=== PATIENT | male | born 1970 | race American Indian/Alaskan Native ===

== ENCOUNTER 2018-12-16 08:30 | Day surgery (SDC) | payer MEDICARE ==
[~2018-12-16 08:30] MED LIST: SODIUM CHLORIDE 0.9% 1000 ML 1,000 ML IV SCH
--- NOTE | 2018-12-16 09:22 | Anesthesia Consultation ---
Anesthesia Consult and Med Hx Date of service: 12/16/18 - Airway Anesthetic Teeth Evaluation: Good (some missing teeth, some fillings) ROM Head & Neck: Adequate Mental/Hyoid Distance: Adequate Mallampati Class: Class III Intubation Access Assessment: Possibly Difficult - Pre-Operative Health Status ASA Pre-Surgery Classification: ASA3 Proposed Anesthetic Plan: MAC - Pulmonary Hx Sleep Apnea: Yes (undiagnosed) - Cardiovascular System Hx Hypertension: Yes Hx Coronary Artery Disease: Yes (no CP, cardiac stent x1 (2011)) Hx Percutaneous Transluminal Coronary Angioplasty (PTCA): Yes (2011) - Endocrine Hx Non-Insulin Dependent Diabetes: Yes - Other Systems Hx Obesity: Yes (BMI 30.7)
--- NOTE | 2018-12-16 09:24 | Anesthesia Day of Surgery ---
Anesthesia Day of Surgery - Day of Surgery Patient Examined: Yes Patient H&P Reviewed: Yes Patient is NPO: Yes Beta Blockers: Yes Cardiac Clearance: Yes (EF 50%)
[2018-12-16] MEDS ORDERED: PROPOFOL 200 MG/20 ML VIAL IV ONE ×3 (09:44→10:03)
--- NOTE | 2018-12-16 10:22 | Procedure Note ---
Date of procedure: 12/16/18 Pre-op diagnosis: Colon Polyp Screeing Post-op diagnosis: other (No Colon Polyps noted/Few Scattered Left Colon Diverticuli) Procedure: Colonoscopy Anesthesia: MAC Surgeon: HEATHER GARZA Estimated blood loss: none Pathology: none Condition: stable Disposition: same day (Encourage fiber intake. Resume home medication and follow up in 1 to 2 weeks ([phone]).)
[2018-12-16 10:45] VITALS: BP 116/78
--- NOTE | 2018-12-16 10:53 | Operative Report ---
The patient is a 48-year-old -[place] gentleman with an underlying history of coronary artery disease status post stent placement who had a colonoscopy done as part of colon polyp screening. DESCRIPTION OF PROCEDURE: Procedure was done after getting informed consent with MAC anesthesia. Initial rectal exam was unremarkable. Instrument was passed through the rectum onto the cecum which was identified with ileocecal valve and appendiceal orifice. The cecum was also viewed on the retroverted view which did not show any additional pathology. Cecum, ascending colon, transverse colon showed normal mucosa. There was a few scattered diverticula noted in the left colon and the rectum appeared normal on the retroverted view. There was no biopsies done. No bleeding associated with the procedure. No complications associated with the procedure. ASSESSMENT: Colon polyp screening, no colon polyps noted. Few scattered left colon diverticula. PLAN: To encourage fiber supplements, have the patient resume home medication. Have the patient follow up in the office in 1-2 weeks' time. The procedure was done in the GI lab unit with the assistance of the GI lab team which included Rosa PUGH; Huan alvares and with the assistance of anesthesia. JOB# [id number] CARLINE/VIVIAN
--- NOTE | 2018-12-16 15:35 | Post Anesthesia Evaluation ---
- Post Anesthesia Evaluation Patient Participated: Yes Airway Patent: Yes Stable Respiratory Function: Yes Nausea/Vomiting: No Temp > 96.8F: Yes Pain Manageable: Yes Adequeate Hydration: Yes Anesthesia Complications: No Block Receding Appropriately: Not Applicable Patient on Ventilator: No
== END 2018-12-16 10:52 | disposition home or self-care (01) ==
LOC: GIO 08:30
DX: Z12.11 Encounter for screening for malignant neoplasm of colon (principal); K57.30 Diverticulosis of large intestine without perforation or abscess without bleeding; I25.10 Atherosclerotic heart disease of native coronary artery without angina pectoris; I10 Essential (primary) hypertension; E11.9 Type 2 diabetes mellitus without complications; E78.00 Pure hypercholesterolemia, unspecified; G47.30 Sleep apnea, unspecified; E66.9 Obesity, unspecified; Z72.89 Other problems related to lifestyle; Z79.899 Other long term (current) drug therapy; Z95.5 Presence of coronary angioplasty implant and graft; Z79.82 Long term (current) use of aspirin; Z68.30 Body mass index [BMI] 30.0-30.9, adult; Z98.890 Other specified postprocedural states
CPT/HCPCS: 82962; G0121; J2704; J7030

== ENCOUNTER 2020-11-15 10:12 | Day surgery (SDC) | payer MEDICARE ==
--- NOTE | 2020-11-15 11:09 | Anesthesia Consultation ---
Anesthesia Consult and Med Hx Date of service: 11/15/20 - Airway Anesthetic Teeth Evaluation: Good ROM Head & Neck: Adequate Mental/Hyoid Distance: Inadequate Mallampati Class: Class II Intubation Access Assessment: Probably Good - Pulmonary Exam CTA: Yes - Pre-Operative Health Status ASA Pre-Surgery Classification: ASA3 Proposed Anesthetic Plan: MAC - Pulmonary Hx Smoking: No Hx Respiratory Symptoms: No Hx Sleep Apnea: Yes (undiagnosed) - Cardiovascular System Hx Hypertension: Yes Hx Coronary Artery Disease: Yes (no CP, cardiac stent x1 (2011)) Hx Percutaneous Transluminal Coronary Angioplasty (PTCA): Yes (2011) - Central Nervous System Hx Neuromuscular Disorder: No Hx Seizures: No Hx Psychiatric Problems: No - Gastrointestinal Hx Gastroesophageal Reflux Disease: Yes - Endocrine Hx Renal Disease: No Hx Liver Disease: No Hx Non-Insulin Dependent Diabetes: Yes Hx Thyroid Disease: No - Other Systems Hx Alcohol Use: No Hx Obesity: Yes (BMI 30.7)
--- NOTE | 2020-11-15 11:11 | Anesthesia Day of Surgery ---
Anesthesia Day of Surgery - Day of Surgery Patient Examined: Yes Patient H&P Reviewed: Yes Patient is NPO: No (Gatorade <2hrs to procedure) Beta Blockers: No Cardiac Clearance: No Pulmonary Clearance: No Cruz's Test: N/A
[2020-11-15] MEDS ORDERED: LIDOCAINE MPF (2%) 20 MG/1 ML VIAL 5 ML ONE (11:14)
[2020-11-15] MEDS ORDERED: propofoL 200 MG/20 ML VIAL IV ONE ×3 (11:14→11:35)
[2020-11-15] MEDS ORDERED: ONDANSETRON 4 MG/2 ML INJ ONE (11:14)
[2020-11-15] MEDS ORDERED: fentaNYL 100 MCG/2 ML INJ ONE (11:36)
--- NOTE | 2020-11-15 12:03 | Procedure Note ---
Date of procedure: 11/15/20 Pre-op diagnosis: Dyspepsia and Abdominal pain Post-op diagnosis: other (Mild to Moderate Erosive Esophagitis and Gastritis/ colon Polyp (Recto-Sigmoid)/ Moderate and Deep Left Colon Diverticular disease/ R/o Microscopic colitis and R/o Ileitis) Procedure: EGD with Biopsy/ Colonoscopy with Hot Snare Polypectomy and Cold Biopsy Anesthesia: [facility] – [place] Surgeon: HEATHER GARZA Estimated blood loss: minimal Pathology: list Specimen disposition: to lab Condition: stable Disposition: same day (Treat with PPi, prn Bentyl, encourage OTC Probiotic. Avoid aspirin and NSAID for 4 days; otherwise resume home medication. follow up in 1 to 2 weeks ([phone]).)
--- NOTE | 2020-11-15 12:06 | Operative Report ---
DATE OF SURGERY: 11/15/2020 PROCEDURE: EGD with biopsy. INDICATIONS: This is a 50-year-old -[place] gentleman who had a CT scan done that seemed to suggest that he had colitis. He had been having some abdominal pain. EGD was done also because he has some dyspeptic symptoms to make sure there was not any significant upper GI pathology present. DESCRIPTION OF PROCEDURE: Procedure was done after getting informed consent with MAC anesthesia. Instrument was passed through the hypopharynx into the esophagus, which showed [id number] erosive esophagitis. Photodocumentation and biopsy was done from the distal esophagus with some minimal bleeding. Stomach showed some antral gastritis. Pylorus was patent. Duodenum in the first and second portion appeared normal. There was no evidence of gastric or duodenal ulcer present. Biopsy was done from the gastric antrum, gastric body and angular incisura to rule out for H. pylori and atrophic gastritis with minimal bleeding. ASSESSMENT: Dyspepsia, abdominal pain, [id number] erosive esophagitis, gastritis. No peptic ulcer disease noted. PLAN: Treat the patient with PPI, p.r.n. dose of Bentyl. I encouraged the patient to take probiotics. Have the patient avoid aspirin and aspirin-related products for the next few days and a colonoscopy will also be done to assess for possible colitis as noted from the CT scan and also as part of colon polyp screening because of his age. Procedure was done in the GI lab with assistance of the GI lab team, which included the GI nurse, reprographics technician and with assistance of anesthesia. TID: [id number] RECEIPT: [id number] CARLINE/CARRIE
--- NOTE | 2020-11-15 12:09 | Operative Report ---
DATE OF SURGERY: 11/15/2020 INDICATIONS: A 50-year-old -[place] gentleman who had some abdominal pain. CT scan was suggestive of possible colitis. Colonoscopy was done to assess for the issue. EGD was done prior to the colonoscopy because of his dyspeptic symptoms, which showed mild to moderate erosive esophagitis and gastritis, but no peptic ulcer disease. DESCRIPTION OF PROCEDURE: Procedure was done after getting informed consent with MAC anesthesia. Initial rectal examination was unremarkable. The instrument was passed through the rectum onto the cecum, which was identified with ileocecal valve and the appendiceal orifice. The terminal ileum was intubated and showed normal mucosa. Biopsy was done to rule out for possible ileitis. The remaining part of the cecum, ascending colon and transverse colon showed normal mucosa. There no polyps or diverticular disease noted. In the left colon, however, there was moderate diverticular disease, some of which were deep, that was noted. The patient will be encouraged to take fiber supplements for that. In the rectosigmoid area, there was a 10-12 mm sessile polyp that was removed by hot snare excision and retrieved. Biopsies were done from the terminal ileum to rule out for possible ileitis. Random biopsies were done through the colon to rule out for possible microscopic colitis. There was minimal bleeding. The rectum did not show any hemorrhoids on the retroverted view. ASSESSMENT: Abdominal pain, colon polyp in the rectosigmoid area, removed by cold snare polypectomy and then retrieved. Moderate left colon diverticula, some of which was deep. The patient will be encouraged to take fiber supplements, rule out microscopic colitis, rule out ileitis. The patient will be asked to avoid aspirin and aspirin-related products for the next 5 days, otherwise resume home medications. Encouraged fiber supplements, treated with Bentyl on a p.r.n. basis for abdominal pain, and also placed on PPI and encouraged to take probiotics because of the EGD findings of esophagitis and gastritis. The patient will be asked to follow up in the office in 1-2 weeks' time. Procedure was done in the GI lab with assistance of the GI lab team, which included the GI nurse, cardiology tech, and with assistance of anesthesia. TID: [id number] RECEIPT: [id number] CARLINE/ANEL
[2020-11-15 13:03] VITALS: BP 117/76
[2020-11-15] MEDS ORDERED: WATER FOR IRRIG STERILE 250 ML BOTTLE IR ONE (14:14)
[2020-11-15] MEDS ORDERED: WATER FOR IRRIG STERILE 1,000 ML BOTTLE ONE (14:14)
== END 2020-11-15 12:36 | disposition home or self-care (01) ==
LOC: GIO 10:12
DX: R10.9 Unspecified abdominal pain (principal); K52.9 Noninfective gastroenteritis and colitis, unspecified; K57.30 Diverticulosis of large intestine without perforation or abscess without bleeding; K63.5 Polyp of colon; K64.0 First degree hemorrhoids; K21.00 Gastro-esophageal reflux disease with esophagitis, without bleeding; K29.50 Unspecified chronic gastritis without bleeding; K31.89 Other diseases of stomach and duodenum; K63.89 Other specified diseases of intestine; E66.9 Obesity, unspecified; E11.9 Type 2 diabetes mellitus without complications; I25.10 Atherosclerotic heart disease of native coronary artery without angina pectoris; I10 Essential (primary) hypertension; G47.30 Sleep apnea, unspecified; E78.00 Pure hypercholesterolemia, unspecified; Z79.84 Long term (current) use of oral hypoglycemic drugs; Z79.899 Other long term (current) drug therapy; Z98.890 Other specified postprocedural states; Z68.33 Body mass index [BMI] 33.0-33.9, adult
CPT/HCPCS: 43239; 45380; 45385; 82962; 88305; 88342; J2405; J2704; J3010; J7030